=== PATIENT | male | born 1985 ===

== ENCOUNTER → 2023-01-12 | Outpatient (REF) | payer OTHER ==
[2023-01-12 12:11] LABS: SEMEN APPEARANCE OPAQUE (OPAQUE); SEMEN VOLUME 2.3 ml (2.0-5.0)
[2023-01-12 12:12] LABS: SEMEN VISCOSITY VISCOUS (LIQUID); SPERM CONCENTRATION 66.8 M/ml (>=15.0); WBC CONCENTRATION >1 M/ml (<=1 M/ml)
== END ==
LOC: M LAB REF 12:02
PROVIDERS: ATTEND Physician Assistant
DX: N46.9 Male infertility, unspecified (principal)